=== PATIENT | female | born 1995 | race Caucasian/White ===

== ENCOUNTER 2017-12-23 15:06 | Inpatient (IN) | payer OTHER ==
[~2017-12-23] VITALS: Ht 154.9 cm; Wt 38.6 kg
--- NOTE | 2017-12-23 17:40 | NUR ---
Pre-Admission Assessment Note Pre-Admission assessment completed in intake office. Client is a 22 y/o female seeking admission for the medically managed withdrawal from Benzodiazepines (Xanax) , and ETOH (Red wine/Vodka). Pt. has also been using marijuana daily, and cocaine multiple times a week. Pt. also reports trying and using Heroin in the past month. Pt. is A/O X 4 and denies any SI, HI, AH, and VH. Patient presents with flushed facial skin, anxiety, restlessness, diaphoresis, fine hand tremors, pressured speech, and a flat affect. Pt. states that she's been abusing multiple substances for the past four months. Current Vital signs are as follows BP: 127/68, P: 85, RR: 16, Temp 98.9 and O2sat: 100%. Pt. states this is her first time in Detox, and denies any past medical history. Educated pt. on units policies and procedures, pt. verbalize understanding. Will continue assessment once on unit.
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
[2017-12-23] MEDS ORDERED: ONDANSETRON ODT 4 MG TAB.RAPDIS SL PRN (19:00)
[2017-12-23] MEDS ORDERED: 5 DAY TAPER VALIUM-SERENITY PROTOCOL PO PRN (19:00)
[2017-12-23] MEDS ORDERED: LORAZEPAM 2 MG/1 ML VIAL IM PRN (19:00)
[2017-12-23] MEDS ORDERED: DIAZEPAM 5 MG TABLET PO PRN (19:00)
[2017-12-23] MEDS ORDERED: LOPERAMIDE HCL 2 MG CAPSULE PO PRN ×2 (19:00)
[2017-12-23] MEDS ORDERED: DIAZEPAM 10 MG TABLET PO PRN ×2 (19:00)
[2017-12-23] MEDS ORDERED: MAG HYDROX/AL HYDROX/SIMETH 30 ML LIQUID UDC PO PRN (19:00)
[2017-12-23] MEDS ORDERED: MAGNESIUM HYDROXIDE 30 ML LIQUID UDC PO PRN (19:00)
--- NOTE | 2017-12-23 19:00 | NUR ---
End of Shift Note Pt. is a 22 y/o female admitted for the medically managed withdrawal from Benzodiazepines (Xanax) and ETOH (Wine). Pt. was also using cocaine and marijuana regularly with her other substance abuse. Pt. is currently on PRN medication to manage symptoms, and is awaiting further assessment by MD. Pt. presents with tremors, anxiety, and restlessness. Upon approach pt. is malodorous, disheveled and guarded. Safety measures in place. Endorsed pt.'s care to oncoming shift.
--- NOTE | 2017-12-23 19:15 | NUR ---
Start of Shift Note: Patient is a 22 y.o female admitted today 12/23/17 for ETOH and Xanax use. Patient also uses cocaine and marijuana. She has a blunt & guarded affect and noted with anxious mood. She is disheveled, unkempt and malodorous. Pt presented with fine tremors, restlessness, anxiety, agitation, & nausea. Pt currently on PRN medications to manage symptoms of withdrawal. Explained to patient current plan of care of the night and medication regimen. Both side rails up. Bed in the lowest position. Call light within pts reach. Will continue to monitor patient.
[2017-12-23 19:42] LABS: *URINE HCG, QUAL NEGATIVE (NEGATIVE)
[2017-12-23 19:56] LABS: *AMPHETAMINE, URINE POSITIVE (NEGATIVE); *BARBITURATE, URINE NEGATIVE (NEGATIVE); *CANNABINOID, URINE POSITIVE (NEGATIVE); *COCCAINE, URINE POSITIVE (NEGATIVE); *OPIATE, URINE NEGATIVE (NEGATIVE); *PHENCYCLIDINE SCREEN,URINE NEGATIVE (NEGATIVE)
[2017-12-23 20:00] VITALS: BP 115/80
[2017-12-23] MEDS ORDERED: THIAMINE HCL 200 MG/2 ML VIAL IM ONE (20:00)
[2017-12-23 20:26] LABS: BASOPHILS # (AUTO) 0.1 K/uL (0.0-8.0); BASOPHILS % (AUTO) 0.6 % (0.0-2.0); EOSINOPHILS # (AUTO) 0.1 K/uL (0.0-0.7); EOSINOPHILS % (AUTO) 0.7 % (0.0-7.0); HEMATOCRIT 41.5 % (31.2-41.9); LYMPHOCYTES # (AUTO) 3.4 K/uL (20.0-40.0); LYMPHOCYTES % (AUTO) 34.5 % (20.5-51.5); MEAN CORPUSCULAR HEMOGLOBIN 32.2 uug (24.7-32.8); MEAN CORPUSCULAR HGB CONC 34 g/dL (32.3-35.6); MEAN CORPUSCULAR VOLUME 95.3 fL (75.5-95.3); NEUTROPHILS # (AUTO) 5.3 K/uL (1.8-8.9); NEUTROPHILS % (AUTO) 54.2 % (38.5-71.5); PLATELET COUNT (AUTO) 312 K/uL (179-408); RED BLOOD CELL COUNT(AUTO) 4.35 MIL/uL (3.63-4.92); WHITE BLOOD COUNT (AUTO) 9.8 K/uL (3.8-11.8)
[2017-12-23 20:48] LABS: BILIRUBIN,TOTAL 0.3 mg/dL (0.2-1.0); MAGNESIUM 1.8 mg/dL (1.8-2.4); POTASSIUM 3.9 mmol/L (3.5-5.1); TOTAL PROTEIN, SERUM 7.9 g/dL (6.4-8.2)
[2017-12-23] MEDS ORDERED: DIAZEPAM 10 MG TABLET PO SCH (21:00)
[2017-12-23 21:08] LABS: THYROID STIMULATING HORMONE 1.293 mIU/mL (0.358-3.740)
[2017-12-23] MEDS: diphenhydrAMINE 50 MG CAPSULE PO PRN (21:40)
[2017-12-23] MEDS: IBUPROFEN 400 MG TABLET PO PRN (21:40)
[2017-12-23] MEDS: HYDROXYZINE PAMOATE 25 MG CAPSULE PO PRN (21:48)
--- NOTE | 2017-12-23 21:48 | NUR ---
PRN Benadryl/Motrin/Vistaril/Zofran Patient complains of nausea, anxiety & 5/10 left buttock pain. Pt complains of not being able to sleep at night and requests medication for sleep. PRN Benadryl/Motrin/Vistaril/Zofran given as ordered. Will monitor for effectiveness of medication.
--- NOTE | 2017-12-23 22:48 | NUR ---
PRN reassessment Patient verbalized decreased in anxiety, relief from pain and improved nausea. Per pt, she started to get drowsy and will go to sleep soon. All needs attended and pt kept comfortable. will continue to monitor patient.
[2017-12-24] VITALS: BP 103/68
--- NOTE | 2017-12-24 | NUR ---
Ciwa score Patient presented with moist/clammy skin, cold sweats, fine tremors, anxiety, agitation. Denies hallucinations and headache. CIWA 10 noted at this time. Pt stable and vitals WNL. Will continue to monitor patient.
[2017-12-24 04:00] VITALS: BP 90/61
--- NOTE | 2017-12-24 04:00 | NUR ---
Ciwa score Patient presented with sweating, fine tremors, anxiety, agitation. Denies hallucinations and no headache noted. CIWA 10 noted at this time. Vitals WNL. Will continue to monitor patient.
--- NOTE | 2017-12-24 07:05 | NUR ---
End of Shift Note: Patient is a 22 y.o female admitted yesterday 12/23/17 for ETOH and Xanax use. Pt presented with fine tremors, restlessness, anxiety, agitation, & nausea. Pt placed on a Valium taper which started yesterday and tolerated well. Last CIWA 10. Pt received PRN Benadryl, Motrin, Vistaril & Zofran and all were effective. Pt remained stable and vitals noted WNL. All due medications given and all needs attended. Pt slept for a total of 7 hours. Fluid intake:1082 ml. Voided 3x with no BM noted. Safety measures in place. Will endorse pt to day shift nurse.
--- NOTE | 2017-12-24 07:30 | NUR ---
START OF SHIFT Endorse rcvd from ongoing nurse, client is in room, a/o x 4, she is fully ambulatory. Client presents with anxious mood, agitation, chills, clammy skin, depression, difficulty concentrating, fine tremors and flushed face. Client reports difficulty thinking clearly, emotional volatility, fatigue, insomnia, muscle aches, stomach cramps, restless legs, sweating, and nausea. PRN Motrin 400mg PO for L buttock pain, Vistaril 50mg Po for anxiety, Zofran 4mg SL for nausea, Benadryl 50mg PO to sleep, client slept 7 hrs. Last CIWA 10 @ 0400. Client is on seizure precautions. Call light within reach.
[2017-12-24 08:28] VITALS: BP 90/58
[2017-12-24] MEDS ORDERED: TUBERCULIN,PURIF.PROT.DERIV. 5 TU/0.1 ML TEST ID ONE (09:00)
[2017-12-24] MEDS: MULTIVITAMINS,THERAPEUTIC TABLET PO SCH (09:29)
[2017-12-24] MEDS: FOLIC ACID 1 MG TABLET PO SCH (09:29)
[2017-12-24] MEDS: DIAZEPAM 10 MG TABLET PO SCH ×3 (09:29→21:48)
[2017-12-24] MEDS: THIAMINE HCL 100 MG TABLET PO SCH (09:29)
--- NOTE | 2017-12-24 09:29 | NUR ---
CIWA 18 Client continues to present with agitation, irritability, clammy skin, restless legs, clammy skin, nausea, and difficulty concentrating. Schedule Valium 10mg PO administered. Call light within reach
[2017-12-24] MEDS: HYDROXYZINE PAMOATE 25 MG CAPSULE PO PRN ×2 (12:10→20:27)
[2017-12-24] MEDS: IBUPROFEN 400 MG TABLET PO PRN ×2 (12:10→20:27)
[2017-12-24] MEDS: CLONIDINE HCL 0.1 MG TABLET PO PRN ×2 (12:10→20:27)
--- NOTE | 2017-12-24 12:16 | NUR ---
CIWA 18 & PRN Clonidine 0.1mg PO, Motrin 400mg PO, Vistaril 50mg PO administered for agitation, KING, and anxiety respectively. Client is in room pacing, restless, anxious, flushed face, and tremors. Call light within reach.
[2017-12-24 12:54] VITALS: BP 117/72
--- NOTE | 2017-12-24 13:16 | NUR ---
Reassess PRN Clonidine 0.1mg PO, Motrin 400mg PO, Vistaril 50mg, client reports slight relief from agitation, KING, and anxiety. Will continue to monitor. call light within reach.
[2017-12-24] MEDS: BACLOFEN 10 MG TABLET PO PRN ×2 (15:15→21:50)
--- NOTE | 2017-12-24 15:16 | NUR ---
PRN Baclofen 10mg PO given for bilateral shoulder pain 11/12 will endorse to primary nurse for reassessment
--- NOTE | 2017-12-24 16:00 | NUR ---
CIWA 14 Client continues to presents with agitation, anxiety, tremors, chills, clammy skin, depression, difficulty concentrating, emotional volatility, fatigue, nausea, restless legs, and sweating. Valium 10mg and Baclofen 10mg administered 45 minutes ago. Call light within reach.
--- NOTE | 2017-12-24 16:16 | NUR ---
PRN Reassess Patient states that Baclofen was effective, pain level is now 2/10 in bilateral shoulders
[2017-12-24 16:51] VITALS: BP 117/56
--- NOTE | 2017-12-24 20:27 | NUR ---
CIWA 14 & PRN Clonidine 0.1mg PO, Motrin 400mg PO, Vistaril 50mg PO administered for agitation, bilateral shoulder pain 6/10, and anxiety respectively. Client is in room pacing, restless, anxious, emotional volatility, flushed face, and tremors. Call light within reach.
[2017-12-24 20:29] VITALS: BP 118/77
--- NOTE | 2017-12-24 21:27 | NUR ---
Reassess PRN Clonidine 0.1mg PO, Motrin 400mg PO, Vistaril 50mg PO, client reports slight relief from agitation and anxiety, bilateral shoulder pain 2/10, but tolerable. Call light within reach.
--- NOTE | 2017-12-24 21:43 | NUR ---
END OF SHIFT Endorse client to incoming nurse, client is in room, a/o x 4. Client continues to present with agitation, anxiety, chills, clammy skin, depression, difficulty concentrating, emotional volatility, fatigue, fine tremors, restless legs, sweating, and poor appetite. PRN medications administered and noted per protocol. Last CIWA 14 @ 1999. Adequate PO fluid intake mL, void x 3, stool x 2. Client is compliant with 2/3 of group therapy. Consumes 50% of meals. Call light within reach.
[2017-12-24] MEDS: diphenhydrAMINE 50 MG CAPSULE PO PRN (21:48)
--- NOTE | 2017-12-24 21:50 | NUR ---
Assumed care of Pt . She is A/O X 4. Administered Valium as ordered. She reports some anxiety ,body aches and restlessness and asked for Benadryl PRN to help her sleep along with Baclofen for body aches. Administered as ordered. Will continue to monitor and manage s/s of w/d.
--- NOTE | 2017-12-24 22:50 | NUR ---
PRN Benadryl effective as Pt is in bed with eyes closed. Even and unlabored respirations noted.
--- NOTE | 2017-12-25 01:19 | NUR ---
CIWA Deferred. VS refused. Pt in bed with eyes closed. Respirations even and unlabored. Bed locked and low. Call light in reach.
--- NOTE | 2017-12-25 06:35 | NUR ---
END OF SHIFT: Pt continues on Valium taper to manage s/s of w/d which include anxiety restlessness,body aches and irritability. She presents with labile mood. Lat CIWA 14 at 2100. PRN Benadryl and PRN Baclofen given to manage s/s of w/d which were effective. She attended activities and groups. She slept 8 hours. Will pass shift report to oncoming nurse.
[2017-12-25 08:00] VITALS: BP 104/60
--- NOTE | 2017-12-25 08:00 | NUR ---
Start of shift: Pt. is a 22 y/o female admitted for the medically managed withdrawal from Benzodiazepines (Xanax), and ETOH (red wine and spirits). Pt. was placed on a 5 day Valium taper to manage her withdrawal symptoms. Endorse from previous shift pt. presented with anxiety, body aches, and restlessness. Received pt. in room. Pt. laying in bed with eyes closed and linens cluttered about. Safety measures in place. Will continue to monitor pt.'s behavior for safety.
--- NOTE | 2017-12-25 08:00 | NUR ---
CIWA Assessment CIWA of 14. Pt. in room and presents with tremors, diaphoresis, anxiety and agitation. Will administer medications as ordered. Will continue to monitor pt.'s behavior for safety.
[2017-12-25] MEDS: DIAZEPAM 5 MG TABLET PO SCH ×4 (09:19→20:25)
[2017-12-25] MEDS: THIAMINE HCL 100 MG TABLET PO SCH (09:19)
[2017-12-25] MEDS: MULTIVITAMINS,THERAPEUTIC TABLET PO SCH (09:19)
[2017-12-25] MEDS: FOLIC ACID 1 MG TABLET PO SCH (09:19)
[2017-12-25] MEDS: HYDROXYZINE PAMOATE 25 MG CAPSULE PO PRN ×3 (09:47→22:46)
[2017-12-25] MEDS: BACLOFEN 10 MG TABLET PO PRN ×3 (09:47→22:47)
[2017-12-25] MEDS: CLONIDINE HCL 0.1 MG TABLET PO PRN ×2 (09:47→16:32)
--- NOTE | 2017-12-25 09:50 | NUR ---
PRN Medication Pt. in room and complaining of increase anxiety and body aches. Gave Pt. PRN Baclofen, Vistaril, and Clonidine. Will continue to monitor pt.'s behavior for safety and medication effectiveness.
--- NOTE | 2017-12-25 10:30 | NUR ---
PRN Re-Assessment Pt. reports decreased feelings of anxiety and reports decreased body aches. Medication effective. Will continue to monitor pt.'s behavior for safety.
[2017-12-25 12:00] VITALS: BP 100/63
--- NOTE | 2017-12-25 12:00 | NUR ---
CIWA Assessment CIWA of 14. Pt. in room and presents with tremors, diaphoresis, anxiety and agitation. Pt. compliant with medication regiment and treatment plan. Will continue to monitor pt.'s behavior for safety.
[2017-12-25 13:06] LABS: HEPATITIS B SURFACE AG Negative (Negative)
--- NOTE | 2017-12-25 13:11 | NUR ---
Therapist prompted client to attend group therapy.
[2017-12-25 16:00] VITALS: BP 106/65
--- NOTE | 2017-12-25 17:30 | NUR ---
PRN Re-Assessment Pt. reports decreased feelings of anxiety and reports decreased body aches. Medication effective. Will continue to monitor pt.'s behavior for safety.
--- NOTE | 2017-12-25 19:00 | NUR ---
End of shift: Pt. is a 22 y/o female admitted for the medically managed withdrawal from Benzodiazepines (Xanax), and ETOH (red wine and spirits). Pt. was placed on a 5 day Valium taper to manage her withdrawal symptoms. Pt. presented throughout shift with anxiety, body aches, and restlessness. Safety measures in place. Will endorse pt.'s care to oncoming shift.
--- NOTE | 2017-12-25 19:30 | NUR ---
Start of shift note Patient is a 22 year old female admitted for ETOH/Benzodiazepine withdrawal. Patient is on 5 day Valium taper. Patient was given PRN Clonidine, Vistaril and Baclofen. Last Cows 14. Patient alert and oriented x 4. Room messy. Patient presents with flat affect , depressed mood and disheveled. Safety measures in place. Call within reach. Will continue to monitor
[2017-12-25 20:00] VITALS: BP 98/60
--- NOTE | 2017-12-25 20:00 | NUR ---
CIWA assessment Patient presents with anxiety, restlessness, irritability, agitation, tremors, hot and cold sweats. CIWA 13.
[2017-12-25] MEDS: diphenhydrAMINE 50 MG CAPSULE PO PRN (22:47)
--- NOTE | 2017-12-25 22:47 | NUR ---
PRN Vistaril, Benadryl and Baclofen administration Patient anxious, c/o muscle aches and requests sleep aid. Will monitor for effectiveness
--- NOTE | 2017-12-25 23:47 | NUR ---
PRN Vistaril and Baclofen re-assessment Patient states Vistaril and Baclofen helpful and effective. Pain lessened
[2017-12-26] VITALS: BP 98/56
--- NOTE | 2017-12-26 | NUR ---
PRN Benadryl/CIWA assessment Patient lying in bed with eyes closed. Respiration even and unlabored. Will continue to monitor.
[2017-12-26 04:00] VITALS: BP 96/60
--- NOTE | 2017-12-26 04:00 | NUR ---
CIWA assessment Patient lying in bed with eyes closed. Respiration even and unlabored. Will continue to monitor. Addendum: 12/26/17 at 0708 by PALAK BILLINGS LVN CIWA greta
--- NOTE | 2017-12-26 07:24 | NUR ---
End of shift note Patient slept 5 hours. Fluid intake 1,425 ml. Voided x 2. BM x 1. Scheduled medication and taper given as ordered. Patient presented. with flat affect , depressed mood and disheveled. Patient was given PRN Vistaril, Benadryl and Baclofen. Safety measures in place. Call within reach. Will continue to monitor. Last CI.
[2017-12-26 08:00] VITALS: BP 110/69
--- NOTE | 2017-12-26 08:10 | NUR ---
START OF SHIFT: Received Pt. A/O X 4. She presents with anxious mood and congruent affect. She reports anxiety, agitation, restlessness,irritability and body aches. CIWA 12. Valium taper in progress to manage s/s of w/d. PRN Clonidine and PRN Baclofen administered to assist in managing anxiety and body aches. Encouraged increased fluids to assist in facilitating detox process. Encouraged group attendance to improve coping skills and prevent relapse. Will continue to monitor and manage s/s of w/d.
[2017-12-26] MEDS: THIAMINE HCL 100 MG TABLET PO SCH (08:27)
[2017-12-26] MEDS: DIAZEPAM 5 MG TABLET PO SCH ×3 (08:27→21:30)
[2017-12-26] MEDS: FOLIC ACID 1 MG TABLET PO SCH (08:28)
[2017-12-26] MEDS: CLONIDINE HCL 0.1 MG TABLET PO PRN ×2 (08:28→17:50)
[2017-12-26] MEDS: MULTIVITAMINS,THERAPEUTIC TABLET PO SCH (08:28)
[2017-12-26] MEDS: BACLOFEN 10 MG TABLET PO PRN ×3 (08:28→20:32)
--- NOTE | 2017-12-26 09:10 | NUR ---
PRN Clonidine and PRN Baclofen effective as Pt states her s/s of w/d including body aches have lessened.
[2017-12-26 12:00] VITALS: BP 112/50
--- NOTE | 2017-12-26 12:05 | NUR ---
CIWA 8 Pt reports anxiety,irritability,restlessness and body aches.
--- NOTE | 2017-12-26 14:40 | NUR ---
PRN baclofen given for reported muscle aches. Will monitor effectiveness of PRN medication.
--- NOTE | 2017-12-26 15:40 | NUR ---
Pt states Baclofen was effective in reducing muscle aches.
[2017-12-26 16:00] VITALS: BP 116/73
--- NOTE | 2017-12-26 17:50 | NUR ---
PRN Clonidine given for anxiety and agitation. Will monitor effectiveness.
--- NOTE | 2017-12-26 18:38 | NUR ---
END OF SHIFT: Pt continues on Valium taper to manage s/s of w/d which include, anxiety,irritability,sweats,restlessness,agitation and body aches. Last CIWA 8. She was given PRN Baclofen X 2 once in am and once this afternoon and it was effective and Clonidine PRN this afternoon. She attends groups and activities and verbalizes motivation toward recovery. [facility]
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
[2017-12-26 20:00] VITALS: BP 132/66
--- NOTE | 2017-12-26 20:00 | NUR ---
Ciwa Assessment Patient presented with anxiety, restlessness, muscle aches & clammy skin. CIWA 7 noted at this time. Will continue to monitor.
[2017-12-26] MEDS: HYDROXYZINE PAMOATE 25 MG CAPSULE PO PRN (20:32)
[2017-12-26] MEDS: IBUPROFEN 400 MG TABLET PO PRN (20:32)
--- NOTE | 2017-12-26 20:32 | NUR ---
PRN Motrin, Vistaril & Baclofen Patient complained of anxiety, restlessness, muscle aches & pain on her left foot. PRN Motrin, Vistaril & Baclofen administered as ordered. Will monitor for effectiveness of medication.
[2017-12-26] MEDS ORDERED: TRAZODONE 50 MG TABLET PO ONE (21:30)
--- NOTE | 2017-12-26 21:32 | NUR ---
PRN Reassessment Patient verbalized relief from muscle aches & pain on her left foot. Pt also stated that her anxiety is much better after 1 hour of medication administration. Pt currently in the activity room watching TV. Will continue to monitor patient.
[2017-12-27 04:00] VITALS: BP 102/56
--- NOTE | 2017-12-27 07:00 | NUR ---
End of Shift Note: Patient still asleep at this time. Pt remained alert & oriented x4. She presented with fine tremors, restlessness, anxiety, agitation & muscle aches. Continues on a Valium taper and tolerating well. Last CIWA 7. Pt received PRN Baclofen for muscles aches, Motrin for pain and Vistaril for anxiety at 2032 and all were effective. Pt remained stable and vitals noted WNL. All due medications given and all needs attended. Pt slept for a total of 6 hours. Fluid intake:1591 ml. Voided 3x with 1x BM noted. Safety measures in place. Will endorse pt to day shift nurse.
--- NOTE | 2017-12-27 07:36 | NUR ---
START OF SHIFT Pt is a 22 yr old female, admitted on 12/23/17 for ETOH/Benzo withdrawal and is on 5 day Valium taper as ordered. Received report from night shift supervisor nurse. Pt received Baclofen PRN, Motrin PRN and Vistaril PRN during the night. Last CIWA score was 7. Pt slept for 6 hrs. Pt is currently in bed sleeping with respirations even and unlabored. Skin is intact, warm and moist to touch. Safety precautions observed. Call light is within reach. Will continue to monitor.
[2017-12-27 08:00] VITALS: BP 108/63
--- NOTE | 2017-12-27 08:00 | NUR ---
CIWA ASSESSMENT Pt is c/o increase anxiety and agitation. Pt is observed with flushed and clammy skin, restless legs and fine tremors. CIWA score this morning is 9. Encouraged increase fluid intake. Will continue to monitor.
[2017-12-27] MEDS: FOLIC ACID 1 MG TABLET PO SCH (09:04)
[2017-12-27] MEDS: DIAZEPAM 5 MG TABLET PO SCH ×2 (09:04→21:16)
[2017-12-27] MEDS: MULTIVITAMINS,THERAPEUTIC TABLET PO SCH (09:04)
[2017-12-27] MEDS: THIAMINE HCL 100 MG TABLET PO SCH (09:04)
[2017-12-27] MEDS: BACLOFEN 10 MG TABLET PO PRN ×2 (09:52→18:43)
--- NOTE | 2017-12-27 09:52 | NUR ---
PRN GIVEN Pt c/o generalized body aches 5/10. Facial grimacing is observed. Baclofen 10mg PO PRN was given as ordered. Encouraged increase fluid intake. Will continue to monitor.
--- NOTE | 2017-12-27 10:52 | NUR ---
PRN RE-ASSESSMENT Baclofen 10mg PO PRN was effective. Pt denies any muscle aches at this time. Will continue to monitor.
[2017-12-27 12:00] VITALS: BP 132/83
[2017-12-27] MEDS: CLONIDINE HCL 0.1 MG TABLET PO PRN ×2 (12:12→18:41)
[2017-12-27] MEDS: HYDROXYZINE PAMOATE 25 MG CAPSULE PO PRN ×2 (12:12→18:41)
--- NOTE | 2017-12-27 12:12 | NUR ---
PRN GIVEN Pt is c/o increase anxiety and is noted fidgety and restless. pt is observed walking back and forth in her room. Pt is c/o sweats and is observed with fine tremors. CIWA score was 12. Pt was given Vistaril 50mg PO PRN and Clonidine 0.1mg PO PRN as ordered. Encouraged increase fluid intake. Will continue to monitor.
--- NOTE | 2017-12-27 14:07 | NUR ---
Therapist prompted client to attend all group therapy sessions.
[2017-12-27 16:30] VITALS: BP 98/61
--- NOTE | 2017-12-27 18:48 | NUR ---
PRN GIVEN Pt was c/o increase anxiety and muscle aches. Pt was given Clonidine 0.1mg PO PRN, Vistaril 50mg PO PRN and Baclofen 10mg PO PRN as ordered. Medication nabil well. Encouraged increase fluid intake. will continue to monitor.
--- NOTE | 2017-12-27 19:08 | NUR ---
END OF SHIFT Pt is a 22 yr old female, AA&Ox4. Pt was admitted on 12/23/17 for ETOH/Benzo withdrawal and is on 5 day Valium taper as ordered. Pt has bee cooperative with medication regimen and plan of care. Pt was observed attending group therapy. Pt was c/o increase anxiety, agitation, sweats chills, generalized body aches and restlessness. Pt is observed fidgety, hyperverbal and euphoric. Pt received Clonidine 0.1mg PO PRN and Vistaril 50mg PO PRN at 1212 and 1841, and Baclofen 10mg PO PRN at 0952 and 1843. Endorsed to night shift supervisor nurse to reassess PRN meds. Last CIWA score was 9. Pt was encouraged increase fluid intake for hydration. Safety precautions observed. Call light is within reach.
[2017-12-27 20:00] VITALS: BP 97/58
--- NOTE | 2017-12-27 20:00 | NUR ---
Start of Shift Patient noted to be anxious and with tremors. No c/o pain at this time. Patient observed to be loud and with racing thoughts. Patient verbalized with intermittent "low feeling" and observed to be melancholic at times. Fall, universal, seizure and safety prec in place. Call light within reach. Latest CIWA=9. Will continue to monitor.
[2017-12-27] MEDS: TRAZODONE 50 MG TABLET PO PRN (22:41)
--- NOTE | 2017-12-27 22:41 | NUR ---
PRN Trazodone Patient c/o inability to sleep. Administered Trazodone 50 mg PO HSPRN. Will reassess.
--- NOTE | 2017-12-27 23:45 | NUR ---
Trazodone reassess Patient verbalized feeling sleepy and would want to go to bed "soon".
[2017-12-28] VITALS: BP 91/62
--- NOTE | 2017-12-28 | NUR ---
CIWA=7 Patient noted to be intermittently anxious and observed to have tremors. Patient is disheveled and is melancholic.
[2017-12-28 04:00] VITALS: BP 103/65
--- NOTE | 2017-12-28 04:00 | NUR ---
CIWA=7 Patient verbalized having intermittent anxiety and noted to have tremors. Patient expressed that she would want to continue sleeping.
--- NOTE | 2017-12-28 07:30 | NUR ---
End of Shift Patient continues to have intermittent anxiety, tremors and noted to have a sad demeanor. Patient verbalized having mood swings and is currently melancholic. Fall, universal, seizure and safety prec in place. Call light within reach. Latest CIWA=7, slept for 6 hours. Endorsed to AM shift nurse for continuity of care.
[2017-12-28 08:00] VITALS: BP 108/62
--- NOTE | 2017-12-28 08:00 | NUR ---
START OF SHIFT Pt is a 22 yr old female, admitted on 12/23/17 for ETOH/Benzo withdrawal and has completed a 5 day Valium taper as ordered. Received report from shift mechanic nurse. Pt received Trazodone PRN for sleep. Medication was effective and pt slept for 6 hrs. Last CIWA score was 7. Pt is currently c/o increase anxiety, headache and generalized body aches. Pt is observed with fine tremors and pt is observed euphoric and hyperverbal. CIWA score this morning is 11. Pt was encouraged increase fluid intake. Skin is intact, warm and clammy to touch. Safety precautions observed. Call light is within reach. Will continue to monitor.
[2017-12-28] MEDS: THIAMINE HCL 100 MG TABLET PO SCH (08:40)
[2017-12-28] MEDS: BACLOFEN 10 MG TABLET PO PRN ×3 (08:40→20:08)
[2017-12-28] MEDS: MULTIVITAMINS,THERAPEUTIC TABLET PO SCH (08:40)
[2017-12-28] MEDS: FOLIC ACID 1 MG TABLET PO SCH (08:40)
[2017-12-28] MEDS: CLONIDINE HCL 0.1 MG TABLET PO PRN ×3 (08:41→22:44)
[2017-12-28] MEDS: HYDROXYZINE PAMOATE 25 MG CAPSULE PO PRN ×2 (08:41→15:27)
--- NOTE | 2017-12-28 08:41 | NUR ---
PRN GIVEN Pt was c/o increase anxiety, sweats, and generalized body aches. Pt was given Baclofen 10mg PO PRN, Clonidine 0.1mg PO PRN and Vistaril 50mg PO PRN as ordered. Pt was encourage increase fluid intake for hydration. Will continue to monitor.
--- NOTE | 2017-12-28 09:41 | NUR ---
PRN RE-ASSESSMENT Clonidine PO PRN, Vistaril PO PRN and Baclofen PO PRN was effective. Pt continue to be observed fidgety and hyperverbal but states her anxiety level subsided. Pt denies any pain at this time. Encouraged increase fluid intake. Will continue to monitor.
[2017-12-28 12:00] VITALS: BP 103/62
--- NOTE | 2017-12-28 13:33 | NUR ---
Therapist prompted client to attend group therapy sessions.
[2017-12-28] MEDS ORDERED: CLON0.1T14 PO (15:20)
[2017-12-28] MEDS ORDERED: BACL10TA PO (15:20)
[2017-12-28] MEDS ORDERED: HYDR-3895 PO (15:20)
--- NOTE | 2017-12-28 15:26 | NUR ---
PRN GIVEN Pt was c/o increase anxiety, sweats and muscle aches. Pt was given Clonidine 0.1mg PO PRN, Vistaril 50mg PO PRN and Baclofen 10mg PO PRN as ordered. Encouraged increase fluid intake. Will continue to monitor.
[2017-12-28 16:00] VITALS: BP 116/69
--- NOTE | 2017-12-28 16:26 | NUR ---
PRN RE-ASSESSMENT Clonidine PRN, Vistaril PRN and Baclofen 10mg was effective. Pt continues to c/o anxiety but is able to cope with anxiety level and has been attending group therapy. Will continue to monitor.
--- NOTE | 2017-12-28 19:19 | NUR ---
END OF SHIFT Pt is a 22 yr old female, AA&Ox4. Pt was admitted on 12/23/17 for ETOH/Benzo withdrawal and has completed a 5 day Valium taper as ordered. Pt has been cooperative with medication regimen and plan of care. Pt was observed attending group therapy. Pt was c/o increase anxiety, agitation, sweats, chills and generalized body aches. Pt is observed fidgety, hyper verbal, euphoric and is observed with fine tremors. Pt received Clonidine 0.1mg PO PRN, Vistaril 50mg PO PRN and Baclofen 10mg PO PRN at 0841 and 1526.Medication was effective. Pt is to be discharged tomorrow to [facility]. Pt states of feeling excited to continue with treatment. Last CIWA score was 9. Pt was encouraged increase fluid intake for hydration. Safety precautions observed. Call light is within reach.
[2017-12-28 20:00] VITALS: BP 117/75
--- NOTE | 2017-12-28 20:00 | NUR ---
Start of Shift Patient verbalized feeling anxious and noted to be in a depressed mood. Patient's hair is unkempt and was educated the importance of a good hygiene and neatness. Patient c/o generalized muscle pain=5/10 and pain focused on the left buttock=7/10. With facial grimacing observed. PRN medication to be administered. Fall, universal, seizure and safety prec in place. Call light within reach. Latest CIWA=10. Will continue to monitor.
[2017-12-28] MEDS: IBUPROFEN 400 MG TABLET PO PRN (20:08)
--- NOTE | 2017-12-28 20:09 | NUR ---
PRN Baclofen and Motrin Patient c/o generalized muscle pain-5/10 and pain on the left buttock-7/10. Administered Baclofen 10 mg PO PRN and Motrin 400 mg PO PRN. Will reassess.
--- NOTE | 2017-12-28 21:10 | NUR ---
Baclofen and Motrin reassess Patient verbalized relief from muscle pain and left buttock pain, "it feels so much better!" pain level=2/10.
[2017-12-28] MEDS: TRAZODONE 50 MG TABLET PO PRN (22:44)
--- NOTE | 2017-12-28 22:44 | NUR ---
PRN Clonidine and Trazodone Patient noted to be increasingly anxious, easily agitated and c/o inability to sleep. Administered Clonidine 0.1 mg PO PRN and Trazodone 50 mg PO PRN. Will reassess.
--- NOTE | 2017-12-28 23:45 | NUR ---
Clonidine and Trazodone reassess Patient verbalized relief from anxiety, "I feel better." Patient also verbalized feeling sleepy. BP=98/65, pulse=76.
[2017-12-29] VITALS: BP 98/65
--- NOTE | 2017-12-29 | NUR ---
CIWA=7 Patient with intermittent anxiety, tremors and verbalized feeling down at times. Patient appears jolly and with racing thoughts.
[2017-12-29 04:00] VITALS: BP 100/59
--- NOTE | 2017-12-29 06:18 | NUR ---
CIWA=6 Patient continues with tremors, intermittent anxiety mostly regarding if her left buttock muscle pain will come back. Patient appears calm. Addendum: 12/29/17 at 0621 by KATIE DOMINGUEZ RN Correct time should be 0400
--- NOTE | 2017-12-29 07:14 | NUR ---
End of Shift Patient verbalized having feelings of intermittent anxiety regarding her discharge. Patient stated that she is ready for the next step in recovery. Patient is focused on her having muscle pain, louisa on her left buttock. Patient was educated of PRN medication to alleviate the said pain. Fall, universal, seizure and safety prec in place. Call light within reach. Latest CIWA=6, slept for 6 hours. Endorsed to AM shift nurse for continuity of care.
--- NOTE | 2017-12-29 07:18 | NUR ---
Start Of Shift Report received from production shift supervisor nurse. Pt Pt is a 22 yr old female, admitted on 12/23/17 for ETOH/Benzo withdrawal and has completed her 5 day Valium taper as ordered. Per production shift supervisor nurse pt's last CIWA was 6. Pt is to be discharged today. Upon start of shift pt noted getting ready and packing up to leave. When greeted pt stated " Im a little anxious about leaving but Im also excited". Pt appears anxious, and flushed. During assessment, pt is AOx4. Lung sounds clear bilaterally. Radial pulse is regular and non-bounding. Abdomen soft and non-tender. Pt's skin is warm and intact. pt denies any pain at the moment. Encouraged pt to drink plenty of fluids to keep hydrated and help the detox process. Pt received PRN Trazodone, Motrin, Baclofen, and Vistaril pt slept a total of 6 hours last night. Bed in lowest position. Side rails up x2. Call light functioning and within reach. All needs attended and met. Will continue to monitor.
[2017-12-29 08:00] VITALS: BP 104/56
[2017-12-29] MEDS: FOLIC ACID 1 MG TABLET PO SCH (08:51)
[2017-12-29] MEDS: THIAMINE HCL 100 MG TABLET PO SCH (08:51)
[2017-12-29] MEDS: MULTIVITAMINS,THERAPEUTIC TABLET PO SCH (08:51)
[2017-12-29] MEDS: HYDROXYZINE PAMOATE 25 MG CAPSULE PO PRN (09:16)
[2017-12-29] MEDS: BACLOFEN 10 MG TABLET PO PRN (09:16)
--- NOTE | 2017-12-29 09:39 | NUR ---
Discharge note Pt was discharged from [facility]. Pt provided with all the discharge paperwork, educated pt on discharge plan, paperwork explained and signed, pt verbalized understanding, all paperwork placed in blue/black bag, Pt is A&Ox4 vitals WNL, pt denies any SI/HI. all belongings returned to pt, Pt did not bring any home medications. Pt left facility at 0937 12/29/17 and was escorted by staff off the unit.
== END 2017-12-29 09:37 | disposition home or self-care (01) | DRG 895 ==
LOC: SRC 16:41
PROVIDERS: ADMIT Family Medicine Addiction Medicine; ATTEND Family Medicine Addiction Medicine
PROC: HZ2ZZZZ Detoxification Services for Substance Abuse Treatment (ICD-10-PCS; principal; 2017-12-23)
PROC: HZ41ZZZ Group Counseling for Substance Abuse Treatment, Behavioral (ICD-10-PCS; 2017-12-24)
PROC: HZ31ZZZ Individual Counseling for Substance Abuse Treatment, Behavioral (ICD-10-PCS; 2017-12-25)
DX: F10.230 Alcohol dependence with withdrawal, uncomplicated (principal); F13.230 Sedative, hypnotic or anxiolytic dependence with withdrawal, uncomplicated; Y90.2 Blood alcohol level of 40-59 mg/100 ml; F41.1 Generalized anxiety disorder; F14.10 Cocaine abuse, uncomplicated; F15.229 Other stimulant dependence with intoxication, unspecified; Z65.3 Problems related to other legal circumstances; F41.9 Anxiety disorder, unspecified; F32.9 Major depressive disorder, single episode, unspecified; R56.9 Unspecified convulsions; G47.00 Insomnia, unspecified; F12.10 Cannabis abuse, uncomplicated
CPT/HCPCS: 36415; 70030-TC; 80307; 80324; 80346; 80349; 80353; 83690; 83735; 84443; 84703; 85025; 86580; 86592; 86705; 86803; 87340; 87806; G0480; J3411; Q0162; Q0163